=== PATIENT | female | born 1985 | race Caucasian/White ===

== ENCOUNTER 2019-06-20 11:10 | Emergency (ER) | payer OTHER ==
[2019-06-20 11:20] VITALS: BP 109/69; PULSE 75; TEMP 98; BMI 28.8
[2019-06-20] MEDS ORDERED: ONDANSETRON *ODT* 4 MG TABLET SL ONE (12:25)
[2019-06-20] MEDS ORDERED: CYCLOBENZAPRINE HCL 5 MG TABLET PO ONE (12:27)
[2019-06-20] MEDS ORDERED: CYCLOBENZAPRINE HCL 10 MG TABLET (FP) ONE (12:32)
[2019-06-20] MEDS ORDERED: ONDANSETRON *ODT* 4 MG TABLET ONE (12:32)
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
[2019-06-20] MEDS ORDERED: KETOROLAC TROMETHAMINE 30 MG/1 ML VIAL IM ONE (14:11)
[2019-06-20] MEDS ORDERED: KETOROLAC TROMETHAMINE 30 MG/1 ML VIAL ONE (14:29)
== END 2019-06-20 15:02 | disposition home or self-care (01) ==
LOC: JERFT 11:10
PROC: 3E0233Z Introduction of Anti-inflammatory into Muscle, Percutaneous Approach (ICD-10-PCS; principal; 2019-06-20)
DX: S16.1XXA Strain of muscle, fascia and tendon at neck level, initial encounter (principal); S06.0X1A Concussion with loss of consciousness of 30 minutes or less, initial encounter; W18.39XA Other fall on same level, initial encounter; Y93.89 Activity, other specified; Y92.89 Other specified places as the place of occurrence of the external cause
CPT/HCPCS: 70450-TC; 96372; 99282-25; Q0162

== ENCOUNTER 2020-08-03 15:29 | Emergency (ER) | payer OTHER ==
[2020-08-03 15:37] VITALS: BMI 29.6
[2020-08-03 17:45] LABS: BASO % 0.2 % (0-2.0); EOS % 0.1 % (0-4.5); HEMATOCRIT 37.1 % (32.4-45.2); HEMOGLOBIN 12.6 GM/dL (10.7-15.3); LYMPH % 5.1 % (8-40); MCH 31.6 pg (25.7-33.7); MCHC 33.8 g/dl (32.0-36.0); MEAN CELL VOLUME 93.3 fl (80-96); MEAN PLT VOLUME 7.9 fl (7.5-11.1); MONO % 6.2 % (3.8-10.2); NEUT % 88.4 % (42.8-82.8); PLATELET COUNT 211 K/MM3 (134-434); RBC 3.98 M/mm3 (3.60-5.2); RDW 13.7 % (11.6-15.6); WHITE BLOOD COUNT 14.7 K/mm3 (4.0-10.0)
[2020-08-03] MEDS ORDERED: SODIUM CHLORIDE 1,000 ML IV STA (17:50)
[2020-08-03] MEDS ORDERED: ACETAMINOPHEN 325 MG TABLET (FP) PO ONE (17:50)
[2020-08-03 17:55] LABS: EPI CELLS >36 /uL (0-25.1); HYALINE CASTS 4 /uL (0-3.1); URINE APPEARANCE CLOUDY; URINE BACTERIA 1122 /uL (0-1359); URINE BILIRUBIN NEGATIVE (NEGATIVE); URINE COLOR DK YELLOW; URINE GLUCOSE (UA) NEGATIVE (NEGATIVE); URINE KETONE TRACE (NEGATIVE); URINE LEUK ESTERASE 1+ (NEGATIVE); URINE NITRITE NEGATIVE (NEGATIVE); URINE PROTEIN TRACE (NEGATIVE); URINE RBC 6 /uL (0-23.9); URINE WBC 96 /uL (0-25.8)
[2020-08-03 17:57] LABS: HCG,QUALITATIVE URINE Negative
[2020-08-03 18:03] LABS: POTASSIUM 3.6 mmol/L (3.5-5.1)
[2020-08-03 18:06] LABS: ALBUMIN 3.4 g/dl (3.4-5.0); BLOOD UREA NITROGEN 8.9 mg/dL (7-18); CALCIUM 8.8 mg/dL (8.5-10.1)
[2020-08-03 18:09] LABS: CREATININE 0.7 mg/dL (0.55-1.3)
[2020-08-03 18:11] LABS: BILIRUBIN,TOTAL 0.7 mg/dL (0.2-1); TOT PROT 7.5 g/dl (6.4-8.2)
[2020-08-03] MEDS ORDERED: ACETAMINOPHEN 1000 MG/100 ML VIAL (NON FORMULARY) IVPB ONE (18:16)
[2020-08-03] MEDS ORDERED: ACETAMINOPHEN INJECTION 100 ML IVPB ONE (18:19)
[2020-08-03] MEDS ORDERED: KETOROLAC TROMETHAMINE 30 MG/1 ML VIAL IVPUSH ONE (19:50)
[2020-08-03] MEDS ORDERED: CEFTRIAXONE 1,000 MG in DEXTROSE 5%-WATER - 50 ML IVPB ONE (19:55)
[2020-08-03] MEDS ORDERED: KETOROLAC TROMETHAMINE 30 MG/1 ML VIAL ONE (19:56)
[2020-08-03 20:07] VITALS: BP 122/75; PULSE 100; TEMP 99.3
[2020-08-03] MEDS ORDERED: CEFTRIAXONE 1 GM/50 ML BAG ONE (20:20)
[2020-08-03] MEDS ORDERED: diazePAM 5 MG TABLET PO ONE (22:17)
[2020-08-03] MEDS ORDERED: diazePAM 5 MG TABLET ONE (22:45)
== END 2020-08-03 23:06 | disposition home or self-care (01) ==
LOC: JER 15:29
PROC: 3E0333Z Introduction of Anti-inflammatory into Peripheral Vein, Percutaneous Approach (ICD-10-PCS; principal; 2020-08-03)
PROC: 3E03329 Introduction of Other Anti-infective into Peripheral Vein, Percutaneous Approach (ICD-10-PCS; 2020-08-03)
PROC: 3E0333Z Introduction of Anti-inflammatory into Peripheral Vein, Percutaneous Approach (ICD-10-PCS; 2020-08-03)
PROC: 3E0337Z Introduction of Electrolytic and Water Balance Substance into Peripheral Vein, Percutaneous Approach (ICD-10-PCS; 2020-08-03)
DX: R10.10 Upper abdominal pain, unspecified (principal); N30.00 Acute cystitis without hematuria; J18.9 Pneumonia, unspecified organism
CPT/HCPCS: 36415; 71046-TC-FY; 71275-TC; 76705-TC; 80053; 81003; 83690; 84703; 85025; 85379; 93005; 93010; 99285-25; C9803; J0131; U0003